=== PATIENT | female | born 1940 | race Caucasian/White ===

== ENCOUNTER 2017-02-24 11:48 | Day surgery (SDC) | payer OTHER, MEDICARE ==
[2017-02-24] MEDS ORDERED: LIDOCAINE 1% 300 MG/30 ML SDV SC ONE (11:55)
--- NOTE | 2017-02-24 13:24 | PDHPUP ---
History & Physical Update H&P update statement: This history and physical update is based on an assessment of the patient which was completed after admission or registration (within 24 hours), but prior to the surgery/procedure. H&P update: H&P reviewed & patient examined, no change in patient's condition since H&P completed
--- NOTE | 2017-02-24 13:24 | PDPROPOC ---
Sedation Plan of Care Sedation Plan of Care: vital signs stable, mental status noted, patient educated of risks, benefits, alternatives ASA Classification: ASA 3 Planned drugs: other Mallampati Score: Class 3 Mallampati Reference Image: Patient passed 3-3-2 rule?: Yes
[2017-02-24] MEDS ORDERED: LIDOCAINE 1% 300 MG/30 ML SDV ONE (13:37)
--- NOTE | 2017-02-26 08:56 | EPPROC ---
Electrophysiology Procedure Note: Procedure: LINQ explant Indication: LINQ end of life Procedure: Parts prepared and draped. LA given. Incision placed. LINQ removed. Rogers placed. Steristrips placed. Dry sterile dressing placed. Conclusion: Successful LINQ explant.
== END 2017-02-24 15:10 | disposition home health service (06) ==
LOC: FCATH 11:48
PROVIDERS: ATTEND Internal Medicine Cardiovascular Disease
PROC: 0JPT02Z Removal of Monitoring Device from Trunk Subcutaneous Tissue and Fascia, Open Approach (ICD-10-PCS; principal; 2017-02-24)
DX: Z45.09 Encounter for adjustment and management of other cardiac device (principal); I47.1 Supraventricular tachycardia